=== PATIENT | male | born 1995 | race American Indian/Alaskan Native ===

== ENCOUNTER 2016-11-12 21:28 | Emergency (ER) | payer SELFPAY | END 2016-11-12 22:02 | disposition left against medical advice (07) | LOC: ED 21:28 | DX: R30.0 Dysuria (principal); Z53.21 Procedure and treatment not carried out due to patient leaving prior to being seen by health care provider ==

== ENCOUNTER 2016-11-21 14:43 | Emergency (ER) | payer SELFPAY ==
[2016-11-21 15:14] VITALS: BP 103/73
--- NOTE | 2016-11-21 21:50 | Emergency Department Report ---
Chief Complaint: Skin Rash Stated Complaint: RASH - HPI History of Present Illness: Patient comes in for concern that he shaved his butt in was evaluated for sports physical and the provider told him that it looks like herpes. Patient denies any pain tenderness no blisters. He just feels that he is shaved and may have saved and taken some of the skin off. Patient has no other concerns or complaints at this time. - Exam Vital Signs: Vital Signs 11/21/16 15:12 Temperature 98.3 F Pulse Rate 65 Respiratory 16 Rate Blood Pressure 103/73 O2 Sat by Pulse 100 Oximetry Physical Exam: Patient is alert and oriented 3. No acute distress. exam is no lesions nontender to some excoriation. MSE screening note: Focused history and physical exam performed. Due to findings the following was ordered: Patient's been evaluated by this provider. We will make him a non-emergency exam. ED Disposition for MSE Condition: Stable
== END 2016-11-21 22:02 ==
LOC: ED 14:43
DX: R21 Rash and other nonspecific skin eruption (principal); Z53.21 Procedure and treatment not carried out due to patient leaving prior to being seen by health care provider